=== PATIENT | female | born 1990 | race Two or more races ===

== ENCOUNTER → 2016-10-07 | Outpatient (CLI) | payer OTHER ==
--- NOTE | 2016-10-07 12:28 | CARD ---
APPROVED REPORT EXAM: Two-dimensional and M-mode echocardiogram with Doppler and color Doppler. Other Information Quality : GoodHR: 70bpm Rhythm : NSR INDICATION Palpitations Shortness of breath 2D DIMENSIONS RVDd2.1 (2.9-3.5cm)Left Atrium(2D)2.7 (1.6-4.0cm) IVSd0.8 (0.7-1.1cm)Aortic Root(2D)2.2 (2.0-3.7cm) LVDd4.7 (3.9-5.9cm)LVOT Diameter1.9 (1.8-2.4cm) PWd0.8 (0.7-1.1cm)LVDs3.0 (2.5-4.0cm) FS (%) 36.8 %SV68.5 ml LVEF(%)65.0 (>50%) Aortic Valve AoV Peak Dereje.133.8cm/sAoV VTI25.8cm AO Peak GR.7.2mmHgLVOT Peak Dereje.118.0cm/s AO Mean GR.4mmHgAVA (VMAX)2.42cm2 Mitral Valve MV E Ilqukbwn336.8cm/sMV E Peak Gr.6mmHg MV DECEL [id number] A Dfjogfbj82.9cm/s MV E Mean Gr.2mmHgE/A Ratio2.2 MV A [id number] Pulmonary Valve PV Peak Dnyayshm343.5cm/s Tricuspid Valve TR P. Nozhtcwd811kr/sRAP VNBXYKNB0brMh TR Peak Gr.16rtHrAKEQ69ljDo Pulmonary Vein S1 Bxkedael82.3cm/sD2 Fgaryqzf68.9cm/s PVa bxpotyzc83kivl LEFT VENTRICLE The left ventricle is normal size. There is normal left ventricular wall thickness. The left ventricu lar systolic function is normal and the ejection fraction is within normal range. The Ejection Fracti on is 65%. There is normal LV segmental wall motion. The left ventricular diastolic function and fill ing is normal for age. RIGHT VENTRICLE The right ventricle is normal size. There is normal right ventricular wall thickness. The right ventr icular systolic function is normal. ATRIA The left atrium size is normal. The right atrium size is normal. The interatrial septum is intact wit h no evidence for an atrial septal defect or patent foramen ovale as noted on 2-D or Doppler imaging. AORTIC VALVE The aortic valve is normal in structure and function. Doppler and Color Flow revealed no significant aortic regurgitation. There is no significant aortic valvular stenosis. MITRAL VALVE The mitral valve is normal in structure and function. There is no evidence of mitral valve prolapse. There is no mitral valve stenosis. Doppler and Color Flow revealed no mitral valve regurgitation note d. TRICUSPID VALVE Doppler and Color Flow revealed mild tricuspid regurgitation. The pulmonary artery systolic pressure is estimated at 33 mmHg. PULMONIC VALVE Doppler and Color Flow revealed mild pulmonic valvular regurgitation. GREAT VESSELS The aortic root is normal in size. The ascending aorta is normal in size. The pulmonary artery is nor mal. The IVC is normal in size and collapses >50% with inspiration. PERICARDIAL EFFUSION There is no evidence of significant pericardial effusion. Critical Notification Critical Value: No <Conclusion> The left ventricular systolic function is normal and the ejection fraction is within normal range. The Ejection Fraction is 65%. The right ventricle is normal size. The left atrium size is normal. The right atrium size is normal. The interatrial septum is intact with no evidence for an atrial septal defect or patent foramen ovale as noted on 2-D or Doppler imaging. The aortic valve is normal in structure and function. The mitral valve is normal in structure and function. Doppler and Color Flow revealed mild tricuspid regurgitation. The pulmonary artery systolic pressure is estimated at 33 mmHg. Doppler and Color Flow revealed mild pulmonic valvular regurgitation. There is no evidence of significant pericardial effusion.
--- NOTE | 2016-10-09 09:49 | EKG ---
[facility] [address] [place] [address] Test Date: 2016-10-07 Test Time: 07:44:06 Pat Name: MANUEL ROBLEDO Department: Room: Gender: F Outside Sales Manager: Lamar Saxena : 1990 Requested By: MOE MALDONADO Order Number: [id number] Reading MD: Interpretive Statements
== END | disposition home or self-care (01) ==
LOC: ECHO 08:53
PROVIDERS: ATTEND Internal Medicine Cardiovascular Disease
DX: R06.02 Shortness of breath (principal); R00.2 Palpitations; Z3A.24 24 weeks gestation of pregnancy; I07.1 Rheumatic tricuspid insufficiency; I37.1 Nonrheumatic pulmonary valve insufficiency
CPT/HCPCS: 93225; 93226; 93306